=== PATIENT | male | born 1995 | race Caucasian/White ===

== ENCOUNTER 2017-09-09 21:08 | Emergency (ER) | payer BC ==
[2017-09-09 21:14] VITALS: BP 151/88
[2017-09-09] MEDS ORDERED: Cephalexin CAP* 500 MG PO ONE (22:58)
--- NOTE | 2017-09-09 22:58 | ED ---
Laceration/Wound HPI - HPI Summary HPI Summary: Complains of laceration to left lateral ankle after stepping on glass tonight. Denies any loss of sensation or function. Bleeding controlled. Medical history is none. Tetanus up-to-date. - History of Current Complaint Stated Complaint: LT FOOT LAC Time Seen by Provider: 09/09/17 22:17 Hx Obtained From: Patient Pain Intensity: 0 - Allergy/Home Medications Allergies/Adverse Reactions: Allergies Allergy/AdvReac Type Severity Reaction Status Date / Time No Known Allergies Allergy Verified 09/09/17 21:13 PMH/Surg Hx/FS Hx/Imm Hx Infectious Disease History: No Infectious Disease History: Denies: Traveled Outside the [place] in Last 30 Days - Social History Alcohol Use: Occasionally Substance Use Type: Reports: None Smoking Status (MU): Never Smoked Tobacco Review of Systems Constitutional: Negative Eyes: Negative ENT: Negative Cardiovascular: Negative Respiratory: Negative Gastrointestinal: Negative Genitourinary: Negative Musculoskeletal: Negative Skin: Negative Neurological: Negative Psychological: Normal All Other Systems Reviewed And Are Negative: Yes Physical Exam - Summary Physical Exam Summary: 4 cm x 0.5 cm laceration. Linear. No foreign body noted Triage Information Reviewed: Yes Vital Signs On Initial Exam: Initial Vitals Temp Pulse Resp BP Pulse Ox 98.2 F 101 18 151/88 99 09/09/17 21:11 09/09/17 21:11 09/09/17 21:11 09/09/17 21:11 09/09/17 21:11 Vital Signs Reviewed: Yes Appearance: Positive: Well-Appearing Skin: Positive: Warm Head/Face: Positive: Normal Head/Face Inspection Eyes: Positive: Normal Neck: Positive: Supple Respiratory/Lung Sounds: Positive: Clear to Auscultation Cardiovascular: Positive: Normal Abdomen Description: Positive: Nontender Musculoskeletal: Positive: Normal Neurological: Positive: Normal Psychiatric: Positive: Normal AVPU Assessment: Alert - [employer] Coma Scale Best Eye Response: 4 - Spontaneous Best Motor Response: 6 - Obeys Commands Best Verbal Response: 5 - Oriented Coma Scale Total: 15 Procedures - Laceration/Wound Repair 1 Location: lower extremity Description: Linear Anesthesia: Local, 1.0% Length, Depth and Shape: 4cm x .5 cm Betadine Prep?: Yes Irrigated w/ Saline (ccs): 30 Laceration/Wound Explored: clean Closure: Single Layer Debridement: minimal Number of Sutures: 5 - 4.0 ethilon Layer Closure?: No Diagnostics - Vital Signs Vital Signs Temp Pulse Resp BP Pulse Ox 09/09/17 21:11 98.2 F 101 18 151/88 99 - Laboratory Lab Statement: Any lab studies that have been ordered have been reviewed, and results considered in the medical decision making process. Laceration Repair Course/Dx - Course Course Of Treatment: Laceration lateral left ankle. PMS intact. Flexion and extension intact. 5 sutures. rx antibiotics. Suture removal in 7-10 days - Clinical Impression Provider Diagnoses: Laceration Discharge - Sign-Out/Discharge Documenting (check all that apply): Discharge/Admit/Transfer - Discharge Plan Condition: Stable Disposition: HOME Prescriptions: Cephalexin CAP* [Keflex CAP*] 500 mg PO TID #21 cap Referrals: [facility] - Jason SAINZ [Primary Care Provider] - Additional Instructions: Follow-up with primary care. Sutures out in 7-10 days. Take antibiotics as directed. Wash with warm running water and soap. Keep covered when not washing. Do not submerge underwater. Return to the ED for any new or worsening symptoms - Billing Disposition and Condition Condition: STABLE Disposition: HOME
== END 2017-09-09 23:15 | disposition home or self-care (01) ==
LOC: ED 21:08
DX: S91.012A Laceration without foreign body, left ankle, initial encounter (principal); W25.XXXA Contact with sharp glass, initial encounter; Y92.9 Unspecified place or not applicable
CPT/HCPCS: 12002; 99282; A9270-GY